=== PATIENT | female | born 1960 | race Caucasian/White ===

== ENCOUNTER 2023-08-16 07:38 | Day surgery (SDC) | payer MEDICARE, MEDICAID, SELFPAY ==
[2023-08-16 08:43] VITALS: BP 120/76; PULSE 67; RESP 18; TEMP 36.4; O2SAT 95; BMI 42.7
[2023-08-16] MEDS: PHENYLEPHRINE 2.5% OPHTH SOLN 2ML 0.0500000000000000028 ML OP ×3 (08:50→09:00)
[2023-08-16] MEDS: CYCLOPENTOLATE 2% OPHTH SOLN 2ML BOTTLE OP ×3 (08:50→09:00)
[2023-08-16] MEDS: TETRACAINE 0.5% OPTH SOL 15ML OP ×3 (08:50→09:00)
[2023-08-16 08:55] LABS: POC Glucose,Bedside 143 (70-110)
[2023-08-16] MEDS: LACTATED RINGERS 1000ML 1,000 ML 100 ML IV (09:01)
[2023-08-16 09:35] VITALS: BP 132/64; PULSE 62; RESP 19; O2SAT 98
[2023-08-16] MEDS: MIDAZOLAM 2MG/2ML VIAL 1 MG IV (09:35)
[2023-08-16 09:40] VITALS: BP 142/77; PULSE 48; RESP 19; O2SAT 98
[2023-08-16] MEDS: SODIUM CHLORIDE 0.9% 10ML FLUSH SYRINGE 10 ML IV (09:42)
[2023-08-16] MEDS: TIMOLOL 0.5% OPTH SOLN 5ML OP (09:42)
[2023-08-16] MEDS: TOBRAMYCIN/DEX OPTH SUSP 2.5ML OP (09:42)
[2023-08-16] MEDS: LIDOCAINE 1% PF 2ML AMPULE 2 ML IJ (09:43)
[2023-08-16 09:44] VITALS: BP 136/79; PULSE 64; RESP 19; O2SAT 98
[2023-08-16 09:47] VITALS: BP 139/78; PULSE 64; RESP 19; O2SAT 96
[2023-08-16 09:50] VITALS: BP 110/54; PULSE 64; RESP 16; TEMP 36.3; O2SAT 97
== END 2023-08-16 10:05 | disposition home or self-care (01) ==
PROVIDERS: PCP Pediatrics; Visit Provider Ophthalmology
PROC: (CPT 66984; principal; 2023-08-16 11:30)
DX: E11.9 Type 2 diabetes mellitus without complications; H53.141 Visual discomfort, right eye; H43.399 Other vitreous opacities, unspecified eye; E11.36 Type 2 diabetes mellitus with diabetic cataract; H25.091 Other age-related incipient cataract, right eye
CPT/HCPCS: 66984; 82962; V2632